=== PATIENT | female | born 1950 | race Hispanic/Latino ===

== ENCOUNTER 2019-03-18 10:32 | Inpatient (IN) | payer MEDICARE ==
[2019-03-18 20:46] LABS: Hematocrit 42.6 % (30.3-42.9); Hemoglobin 13.7 gm/dl (10.1-14.3); Mean Corpuscular HGB Conc 32 % (30-34); Mean Corpuscular Volume 85 fl (79-97); Platelet Count 484 K/mm3 (140-440); Red Blood Count 5.03 M/mm3 (3.65-5.03); Red Cell Distribution Width 16.8 % (13.2-15.2)
[2019-03-18 20:47] LABS: Basophils # (Auto) 0.1 K/mm3 (0.0-0.1); Basophils % (Auto) 0.7 % (0.0-1.8); Eosinophils # (Auto) 0.3 K/mm3 (0.0-0.4); Eosinophils % (Auto) 3.5 % (0.0-4.3); Lymphocytes # (Auto) 2.4 K/mm3 (1.2-5.4); Lymphocytes % (Auto) 28.8 % (13.4-35.0); Monocytes # (Auto) 0.6 K/mm3 (0.0-0.8); Monocytes % (Auto) 7.5 % (0.0-7.3)
[2019-03-18 21:40] LABS: BUN/Creatinine Ratio 40; Blood Urea Nitrogen 24 mg/dL (7-17); Calcium 9.7 mg/dL (8.4-10.2)
[2019-03-18 21:41] LABS: Alanine Aminotransferase 34 units/L (7-56); Albumin 3.8 g/dL (3.9-5); HDL Cholesterol 49 mg/dL (40-59); LDL Cholesterol,Direct 143 mg/dL (50-130)
[2019-03-19 05:20] LABS: Hemolysis Index 9
[2019-03-19] MEDS ORDERED: TERBINAFINE 250 MG PO SCH (11:30)
--- NOTE | 2019-03-19 11:34 | Consultation ---
History of Present Illness - Reason for Consult Consult date: 03/19/19 Medical management - History of Present Illness Lady Gomez is a 68-year-old white female admitted for schizoaffective disorder and a medical consult was requested for management of medical conditions. Patient is awake alert and not in any distress. She is moderately psychotic but responds to questions fairly well. She complains of burning pain in both the feet. She denies any chest pain or shortness of breath. She denies any fever or chills. Denies any nausea, vomiting, abdominal pain dysuria or urinary frequency. She denies any arthritis but states that she has cervical spine stenosis. Past History Past Medical History: No medical history Past Surgical History: No surgical history Social history: no significant social history Family history: no significant family history Medications and Allergies Home Medications Medication Instructions Recorded Confirmed Last Taken Type DOXYCYCLINE Hyclate [Vibramycin] 100 mg PO BID 03/18/19 03/18/19 Unknown History Divalproex ER 500 mg PO Q8HR 03/18/19 03/18/19 Unknown History Heparin 5,000 units SUB-Q Q8HR 03/18/19 03/18/19 Unknown History Lotrimin 1% 1 cream BID 03/18/19 03/19/19 Unknown History Terbinafine (Nf) [LamiSIL] 250 mg PO DAILY 03/18/19 03/18/19 Unknown History Tylenol 650 mg PO Q6HR 03/18/19 03/18/19 Unknown History Active Meds: Active Medications Miscellaneous Medication (Terbinafine (Nf)) 250 mg PO DAILY [facility] Nystatin (Mycostatin) 1 applic TP BID [facility] Review of Systems All systems: negative (13 point review of systems is unremarkable except as stated above in the history of present illness) Exam - Constitutional Vitals: Temp Pulse Resp BP Pulse Ox 97.7 F 91 H 20 94/57 95 03/18/19 22:00 03/18/19 22:00 03/18/19 22:00 03/18/19 22:00 03/18/19 22:00 General appearance: Present: no acute distress, well-nourished - EENT Eyes: Present: PERRL, EOM intact ENT: hearing intact, clear oral mucosa - Neck Neck: Present: supple, normal ROM - Respiratory Respiratory effort: normal Respiratory: bilateral: CTA - Cardiovascular Rhythm: regular Heart Sounds: Present: S1 & S2 - Extremities Extremities: No edema Extremity abnormal: other (Both feet positive for chronically appearing erythematous discoloration with dry skin and severe toenail fungus. There are no open ulcers or discharge) - Abdominal General gastrointestinal: Present: soft, non-tender. Absent: hepatomegaly, splenomegaly Female genitourinary: Present: deferred - Rectal Rectal Exam: deferred - Integumentary Integumentary: Present: rash (On both feet distally) - Musculoskeletal Musculoskeletal: strength equal bilaterally - Psychiatric Psychiatric: appropriate mood/affect - Neurologic Neurologic: no focal deficits Results - Labs CBC & Chem 7: 03/18/19 19:59 03/18/19 19:59 Labs: Abnormal lab results 03/18/19 03/18/19 Range/Units 19:59 19:59 MCH 27 L (28-32) pg RDW 16.8 H (13.2-15.2) % Plt Count 484 H (140-440) K/mm3 [place] % (Auto) 7.5 H (0.0-7.3) % Sodium 135 L (137-145) mmol/L BUN 24 H (7-17) mg/dL Creatinine 0.6 L (0.7-1.2) mg/dL Glucose 144 H (65-100) mg/dL Albumin 3.8 L (3.9-5) g/dL Triglycerides 169 H (2-149) mg/dL Cholesterol 201 H (50-199) mg/dL LDL Cholesterol Direct 143 H (50-130) mg/dL Assessment and Plan - Patient Problems (1) Hyperglycemia Current Visit: Yes Status: Acute Plan to address problem: Patient denies any history of diabetes Check A1c (2) Hyponatremia Current Visit: Yes Status: Acute Plan to address problem: Mild Monitor electrolytes No need for hyponatremia work-up at this time (3) Dyslipidemia Current Visit: Yes Status: Chronic Plan to address problem: Borderline dyslipidemia Low-fat diet (4) Toenail fungus Current Visit: Yes Status: Chronic Plan to address problem: Continue terbinafine Check liver function tests (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
[2019-03-19] MEDS: NYSTATIN CREAM 15 GM TUBE TP SCH ×2 (13:19→21:45)
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
[2019-03-19] MEDS: DIVALPROEX ER 500 MG TAB PO SCH (21:47)
[2019-03-19] MEDS: HEPARIN 5,000 UNIT/1 ML VIAL SUB-Q SCH (21:47)
[2019-03-19] MEDS: DOXYCYCLINE 100 MG CAPSULE PO SCH (21:47)
[2019-03-19] MEDS ORDERED: NON-FORMULARY EACH (Divalproex Er 500 MG) PO SCH (22:00)
[2019-03-19] MEDS ORDERED: HEPARIN 5000 UNIT SUB-Q SCH (22:00)
[2019-03-20] MEDS: HEPARIN 5,000 UNIT/1 ML VIAL SUB-Q SCH ×3 (05:30→21:44)
[2019-03-20] MEDS: DIVALPROEX ER 500 MG TAB PO SCH ×3 (05:32→21:45)
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
[2019-03-20] MEDS: NYSTATIN CREAM 15 GM TUBE TP SCH ×2 (11:52→21:44)
[2019-03-20] MEDS: DOXYCYCLINE 100 MG CAPSULE PO SCH ×2 (11:52→21:43)
[2019-03-20] MEDS: traZODone 50 MG TAB PO SCH (21:45)
[2019-03-21] MEDS: HEPARIN 5,000 UNIT/1 ML VIAL SUB-Q SCH ×3 (05:13→21:15)
[2019-03-21] MEDS: DIVALPROEX ER 500 MG TAB PO SCH ×4 (05:14→21:14)
[2019-03-21] MEDS: DOXYCYCLINE 100 MG CAPSULE PO SCH ×2 (10:02→21:15)
[2019-03-21] MEDS: NYSTATIN CREAM 15 GM TUBE TP SCH ×2 (10:03→21:14)
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
[2019-03-21] MEDS ORDERED: HALOPERIDOL LACTATE 5 MG/1 ML INJ IM PRN (10:40)
[2019-03-21] MEDS ORDERED: LORazepam 2 MG/ML VIAL IM PRN (10:49)
[2019-03-21] MEDS: traZODone 50 MG TAB PO SCH (21:14)
[2019-03-22] MEDS: DIVALPROEX ER 500 MG TAB PO SCH ×3 (05:54→21:13)
[2019-03-22] MEDS: ACETAMINOPHEN 325 MG TAB PO PRN (05:57)
[2019-03-22] MEDS: HEPARIN 5,000 UNIT/1 ML VIAL SUB-Q SCH ×3 (06:07→21:14)
--- NOTE | 2019-03-22 08:38 | Progress Note ---
Subjective Date of service: 03/22/19 Principal diagnosis: schizoaffective disorder, bipolar Subjective Comment: Subjective Comment: Reviewed the patient's medical chart and discussed progress with nursing staff. Per chart, The patient remained hyperverbal throughout the evening. She continues with delusions of being part of a law enforcement operation. She agreed to take her bedtime medications but refused the Heparin injection stating "I don't need it now I am up moving around". During my interview this morning, the patient was in the day room aaox3, . When asked how she was doing she replied, "I am dope up". she denies SI/HI and AVH. when ask about her mood she replied, 'Ihave hangover from the drugs that is poisoning my body". the patient stated "I don't want to take medication because my mother from the wrong medication ". she then started crying. the client then reports that she needs to go home and the witness protection program probably need her. Reason for continued admission into the hospital: delusional / Improve tx, medication compliance REVIEW OF SYSTEMS Constitutional: Negative for weight loss ENT: Negative for stridor Respiratory: Negative for cough or hemoptysis All other systems reviewed and are negative Mental Status Exam Appearance:dress appriopriately Behavior: flat/crying Mood: : sad Affect: congruent with mood Thought Process: disorganized Speech: normal Thought Content Harmfulness : denies Hallucinations:denies Delusions: yes Consciousness: Alert Cognition/Memory: Fair Insight/Judgment: Limited. Assessment: Schizoaffective Disorder behavioral,bipolar Treatment Plan Due to the psychiatric conditions and treatment listed in the Assessment and Plan - the patient requires continued hospitalization. Will continue inpatient treatment to allow for medication adjustment and monitoring. Will continue q15 min safety checks. Will encourage the use of environmental modifications and non-pharmacologic approaches for the management of behavioral and psychological symptoms. Medication adjustment made today: none Will continue current psych medications Monitor for medication side effects. The patient will continue on medications for physical illnesses, and Hospitalist will closely monitor these Continue intensive physical and occupational therapies. Monitor patient's mood, sleep, appetite, and behavior closely. Encourage patient to participate in individual and group therapeutic sessions on the fraser. Will provide a safe and therapeutic environment for patient. ELOS 3 days Objective - Criteria for Continued Treatment Criteria for Continued Treatment: Medications and Allergies Allergies Allergy/AdvReac Type Severity Reaction Status Date / Time No Known Allergies Allergy Verified 03/20/19 05:48 Home Medications Medication Instructions Recorded Confirmed Last Taken Type DOXYCYCLINE Hyclate [Vibramycin] 100 mg PO BID 03/18/19 03/18/19 Unknown History Divalproex ER 500 mg PO Q8HR 03/18/19 03/18/19 Unknown History Heparin 5,000 units SUB-Q Q8HR 03/18/19 03/18/19 Unknown History Lotrimin 1% 1 cream BID 03/18/19 03/19/19 Unknown History Terbinafine (Nf) [LamiSIL] 250 mg PO DAILY 03/18/19 03/18/19 Unknown History Tylenol 650 mg PO Q6HR 03/18/19 03/18/19 Unknown History Active Meds: Active Medications Acetaminophen (Tylenol) 650 mg PO Q6H PRN PRN Reason: Pain, Mild (1-3) Last Admin: 03/22/19 05:57 Dose: 650 mg Documented by: Divalproex Sodium (Depakote Er) 500 mg PO Q8HR [facility] Last Admin: 03/22/19 05:54 Dose: 500 mg Documented by: Doxycycline Hyclate (Vibramycin) 100 mg PO BID [facility] Last Admin: 03/21/19 21:15 Dose: 100 mg Documented by: Haloperidol Lactate (Haldol) 5 mg IM Q6H PRN PRN Reason: Agitation Heparin Sodium (Porcine) (Heparin) 5,000 unit SUB-Q Q8HR [facility] Last Admin: 03/22/19 06:07 Dose: Not Given Documented by: Lorazepam (Ativan) 1 mg IM Q6H PRN PRN Reason: Agitation Miscellaneous Medication (Terbinafine (Nf)) 250 mg PO DAILY [facility] Nystatin (Mycostatin) 1 applic TP BID [facility] Last Admin: 03/21/19 21:14 Dose: 1 applic Documented by: Trazodone HCl (Desyrel) 50 mg PO QHS [facility] Last Admin: 03/21/19 21:14 Dose: 50 mg Documented by: Results - Results Labs/Vitals: Laboratory Last Values WBC 8.2 K/mm3 (4.5-11.0) 03/18/19 19:59 RBC 5.03 M/mm3 (3.65-5.03) 03/18/19 19:59 Hgb 13.7 gm/dl (10.1-14.3) 03/18/19 19:59 Hct 42.6 % (30.3-42.9) 03/18/19 19:59 MCV 85 fl (79-97) 03/18/19 19:59 MCH 27 pg (28-32) L 03/18/19 19:59 MCHC 32 % (30-34) 03/18/19 19:59 RDW 16.8 % (13.2-15.2) H 03/18/19 19:59 Plt Count 484 K/mm3 (140-440) H 03/18/19 19:59 Lymph % (Auto) 28.8 % (13.4-35.0) 03/18/19 19:59 [place] % (Auto) 7.5 % (0.0-7.3) H 03/18/19 19:59 Eos % (Auto) 3.5 % (0.0-4.3) 03/18/19 19:59 Baso % (Auto) 0.7 % (0.0-1.8) 03/18/19 19:59 Lymph # 2.4 K/mm3 (1.2-5.4) 03/18/19 19:59 [place] # 0.6 K/mm3 (0.0-0.8) 03/18/19 19:59 Eos # 0.3 K/mm3 (0.0-0.4) 03/18/19 19:59 Baso # 0.1 K/mm3 (0.0-0.1) 03/18/19 19:59 Seg Neutrophils % 59.5 % (40.0-70.0) 03/18/19 19:59 Seg Neutrophils # 4.8 K/mm3 (1.8-7.7) 03/18/19 19:59 Sodium 135 mmol/L (137-145) L 03/18/19 19:59 Potassium 4.4 mmol/L (3.6-5.0) 03/18/19 19:59 Chloride 98.4 mmol/L (98-107) 03/18/19 19:59 Carbon Dioxide 23 mmol/L (22-30) 03/18/19 19:59 Anion Gap 18 mmol/L 03/18/19 19:59 BUN 24 mg/dL (7-17) H 03/18/19 19:59 Creatinine 0.6 mg/dL (0.7-1.2) L 03/18/19 19:59 Estimated GFR > 60 ml/min 03/18/19 19:59 BUN/Creatinine Ratio 40 % 03/18/19 19:59 Glucose 144 mg/dL (65-100) H 03/18/19 19:59 POC Glucose 95 (70-105) 03/19/19 12:10 Hemoglobin A1c 5.5 % (4-6) 03/18/19 19:59 Calcium 9.7 mg/dL (8.4-10.2) 03/18/19 19:59 Total Bilirubin 0.20 mg/dL (0.1-1.2) 03/18/19 19:59 AST 24 units/L (5-40) 03/18/19 19:59 ALT 34 units/L (7-56) 03/18/19 19:59 Alkaline Phosphatase 72 units/L (35-129) 03/18/19 19:59 Total Protein 7.2 g/dL (6.3-8.2) 03/18/19 19:59 Albumin 3.8 g/dL (3.9-5) L 03/18/19 19:59 Albumin/Globulin Ratio 1.1 % 03/18/19 19:59 Triglycerides 169 mg/dL (2-149) H 03/18/19 19:59 Cholesterol 201 mg/dL (50-199) H 03/18/19 19:59 LDL Cholesterol Direct 143 mg/dL (50-130) H 03/18/19 19:59 HDL Cholesterol 49 mg/dL (40-59) 03/18/19 19:59 Cholesterol/HDL Ratio 4.10 % 03/18/19 19:59 TSH 2.510 mlU/mL (0.270-4.200) 03/18/19 19:59 Last Vital Signs Temp 97.6 F 03/21/19 21:52 Pulse 84 03/21/19 21:52 Resp 17 03/21/19 21:52 BP 107/50 03/21/19 21:52 Pulse Ox 99 03/21/19 21:52
[2019-03-22] MEDS: NYSTATIN CREAM 15 GM TUBE TP SCH ×2 (09:25→21:13)
[2019-03-22] MEDS: DOXYCYCLINE 100 MG CAPSULE PO SCH ×2 (09:25→21:13)
[2019-03-22] MEDS: traZODone 50 MG TAB PO SCH (21:13)
[2019-03-23] MEDS: DIVALPROEX ER 500 MG TAB PO SCH ×3 (06:16→21:10)
[2019-03-23] MEDS: HEPARIN 5,000 UNIT/1 ML VIAL SUB-Q SCH ×3 (06:16→21:10)
--- NOTE | 2019-03-23 08:18 | Progress Note ---
Subjective Date of service: 03/23/19 Principal diagnosis: schizoaffective disorder, bipolar Subjective Comment: Subjective Comment: Reviewed the patient's medical chart and discussed progress with nursing staff. Per chart, patient slept most of night. Compliant with meds. During my interview this morning, the patient was in her room aaox2,she report that she slept well, but has a headache, report mood as great and staed," I am homesick. She denies stated, " never, that a sin , disrespect of god creation.". She denies HI and AVH.The patient is compliant with medications but, her though process is tangential and loosely associated. Reason for continued admission into the hospital: delusional / Improve tx, medication compliance REVIEW OF SYSTEMS Constitutional: Negative for weight loss ENT: Negative for stridor Respiratory: Negative for cough or hemoptysis All other systems reviewed and are negative Mental Status Exam Appearance:dress appriopriately Behavior: calm cooperative Mood: : euphoric Affect: congruent with mood Thought Process: tangential Speech: normal Thought Content Harmfulness : denies Hallucinations:denies Delusions: yes Consciousness: Alert Cognition/Memory: Fair Insight/Judgment: Limited. Assessment: Schizoaffective Disorder behavioral,bipolar Treatment Plan Due to the psychiatric conditions and treatment listed in the Assessment and Plan - the patient requires continued hospitalization. Will continue inpatient treatment to allow for medication adjustment and monitoring. Will continue q15 min safety checks. Will encourage the use of environmental modifications and non-pharmacologic approaches for the management of behavioral and psychological symptoms. Medication adjustment made today: none Will continue current psych medications Monitor for medication side effects. The patient will continue on medications for physical illnesses, and Hospitalist will closely monitor these Continue intensive physical and occupational therapies. Monitor patient's mood, sleep, appetite, and behavior closely. Encourage patient to participate in individual and group therapeutic sessions on the fraser. Will provide a safe and therapeutic environment for patient. ELOS 3 days Objective Medications and Allergies Allergies Allergy/AdvReac Type Severity Reaction Status Date / Time No Known Allergies Allergy Verified 03/20/19 05:48 Home Medications Medication Instructions Recorded Confirmed Last Taken Type DOXYCYCLINE Hyclate [Vibramycin] 100 mg PO BID 03/18/19 03/18/19 Unknown History Divalproex ER 500 mg PO Q8HR 03/18/19 03/18/19 Unknown History Heparin 5,000 units SUB-Q Q8HR 03/18/19 03/18/19 Unknown History Lotrimin 1% 1 cream BID 03/18/19 03/19/19 Unknown History Terbinafine (Nf) [LamiSIL] 250 mg PO DAILY 03/18/19 03/18/19 Unknown History Tylenol 650 mg PO Q6HR 03/18/19 03/18/19 Unknown History Active Meds: Active Medications Acetaminophen (Tylenol) 650 mg PO Q6H PRN PRN Reason: Pain, Mild (1-3) Last Admin: 03/22/19 05:57 Dose: 650 mg Documented by: Divalproex Sodium (Depakote Er) 500 mg PO Q8HR [facility] Last Admin: 03/23/19 06:16 Dose: 500 mg Documented by: Doxycycline Hyclate (Vibramycin) 100 mg PO BID [facility] Last Admin: 03/22/19 21:13 Dose: 100 mg Documented by: Haloperidol Lactate (Haldol) 5 mg IM Q6H PRN PRN Reason: Agitation Heparin Sodium (Porcine) (Heparin) 5,000 unit SUB-Q Q8HR [facility] Last Admin: 03/23/19 06:16 Dose: Not Given Documented by: Lorazepam (Ativan) 1 mg IM Q6H PRN PRN Reason: Agitation Miscellaneous Medication (Terbinafine (Nf)) 250 mg PO DAILY [facility] Nystatin (Mycostatin) 1 applic TP BID [facility] Last Admin: 03/22/19 21:13 Dose: 1 applic Documented by: Trazodone HCl (Desyrel) 50 mg PO QHS [facility] Last Admin: 03/22/19 21:13 Dose: 50 mg Documented by: Results - Results Labs/Vitals: Laboratory Last Values WBC 8.2 K/mm3 (4.5-11.0) 03/18/19 19:59 RBC 5.03 M/mm3 (3.65-5.03) 03/18/19 19:59 Hgb 13.7 gm/dl (10.1-14.3) 03/18/19 19:59 Hct 42.6 % (30.3-42.9) 03/18/19 19:59 MCV 85 fl (79-97) 03/18/19 19:59 MCH 27 pg (28-32) L 03/18/19 19:59 MCHC 32 % (30-34) 03/18/19 19:59 RDW 16.8 % (13.2-15.2) H 03/18/19 19:59 Plt Count 484 K/mm3 (140-440) H 03/18/19 19:59 Lymph % (Auto) 28.8 % (13.4-35.0) 03/18/19 19:59 [place] % (Auto) 7.5 % (0.0-7.3) H 03/18/19 19:59 Eos % (Auto) 3.5 % (0.0-4.3) 03/18/19 19:59 Baso % (Auto) 0.7 % (0.0-1.8) 03/18/19 19:59 Lymph # 2.4 K/mm3 (1.2-5.4) 03/18/19 19:59 [place] # 0.6 K/mm3 (0.0-0.8) 03/18/19 19:59 Eos # 0.3 K/mm3 (0.0-0.4) 03/18/19 19:59 Baso # 0.1 K/mm3 (0.0-0.1) 03/18/19 19:59 Seg Neutrophils % 59.5 % (40.0-70.0) 03/18/19 19:59 Seg Neutrophils # 4.8 K/mm3 (1.8-7.7) 03/18/19 19:59 Sodium 135 mmol/L (137-145) L 03/18/19 19:59 Potassium 4.4 mmol/L (3.6-5.0) 03/18/19 19:59 Chloride 98.4 mmol/L (98-107) 03/18/19 19:59 Carbon Dioxide 23 mmol/L (22-30) 03/18/19 19:59 Anion Gap 18 mmol/L 03/18/19 19:59 BUN 24 mg/dL (7-17) H 03/18/19 19:59 Creatinine 0.6 mg/dL (0.7-1.2) L 03/18/19 19:59 Estimated GFR > 60 ml/min 03/18/19 19:59 BUN/Creatinine Ratio 40 % 03/18/19 19:59 Glucose 144 mg/dL (65-100) H 03/18/19 19:59 POC Glucose 95 (70-105) 03/19/19 12:10 Hemoglobin A1c 5.5 % (4-6) 03/18/19 19:59 Calcium 9.7 mg/dL (8.4-10.2) 03/18/19 19:59 Total Bilirubin 0.20 mg/dL (0.1-1.2) 03/18/19 19:59 AST 24 units/L (5-40) 03/18/19 19:59 ALT 34 units/L (7-56) 03/18/19 19:59 Alkaline Phosphatase 72 units/L (35-129) 03/18/19 19:59 Total Protein 7.2 g/dL (6.3-8.2) 03/18/19 19:59 Albumin 3.8 g/dL (3.9-5) L 03/18/19 19:59 Albumin/Globulin Ratio 1.1 % 03/18/19 19:59 Triglycerides 169 mg/dL (2-149) H 03/18/19 19:59 Cholesterol 201 mg/dL (50-199) H 03/18/19 19:59 LDL Cholesterol Direct 143 mg/dL (50-130) H 03/18/19 19:59 HDL Cholesterol 49 mg/dL (40-59) 03/18/19 19:59 Cholesterol/HDL Ratio 4.10 % 03/18/19 19:59 TSH 2.510 mlU/mL (0.270-4.200) 03/18/19 19:59 Last Vital Signs Temp 97.4 F L 03/22/19 20:41 Pulse 83 03/22/19 20:41 Resp 18 03/22/19 20:41 BP 120/57 03/22/19 20:41 Pulse Ox 97 03/22/19 20:41
[2019-03-23] MEDS: DOXYCYCLINE 100 MG CAPSULE PO SCH ×2 (10:14→21:10)
[2019-03-23] MEDS: NYSTATIN CREAM 15 GM TUBE TP SCH ×2 (10:14→21:09)
[2019-03-23] MEDS: traZODone 50 MG TAB PO SCH (21:10)
[2019-03-24] MEDS: DIVALPROEX ER 500 MG TAB PO SCH ×3 (05:08→21:40)
[2019-03-24] MEDS: HEPARIN 5,000 UNIT/1 ML VIAL SUB-Q SCH ×3 (05:12→22:35)
--- NOTE | 2019-03-24 08:25 | Progress Note ---
Subjective Date of service: 03/24/19 Principal diagnosis: schizoaffective disorder, bipolar Subjective Comment: Subjective Comment: Reviewed the patient's medical chart and discussed progress with nursing staff. Per chart,t is alert and oriented x3, calm and cooperative, interacts well with peers, denies SI/HI, denies A/V/H, good appetite, independent with ADLS, pt refused heparin injection, but compliant with her other medication, no behavioral issues, pt slept throughout THE NIGHT. During my interview this morning, the patient was in her room [id number],she report that she slept well, she reports her mood as martinez, she denies SI/HI and AVH. Reason for continued admission into the hospital: delusional / Improve tx, medication compliance REVIEW OF SYSTEMS Constitutional: Negative for weight loss ENT: Negative for stridor Respiratory: Negative for cough or hemoptysis All other systems reviewed and are negative Mental Status Exam Appearance:dress appriopriately Behavior: calm cooperative Mood: : "sleepy" Affect: congruent with mood Thought Process: circumstantial Speech: normal Thought Content Harmfulness : denies Hallucinations:denies Delusions: yes Consciousness: Alert Cognition/Memory: Fair Insight/Judgment: Limited. Assessment: Schizoaffective Disorder behavioral,bipolar Treatment Plan Due to the psychiatric conditions and treatment listed in the Assessment and Plan - the patient requires continued hospitalization. Will continue inpatient treatment to allow for medication adjustment and monitoring. Will continue q15 min safety checks. Will encourage the use of environmental modifications and non-pharmacologic approaches for the management of behavioral and psychological symptoms. Medication adjustment made today: none Will continue current psych medications Monitor for medication side effects. The patient will continue on medications for physical illnesses, and Hospitalist will closely monitor these Continue intensive physical and occupational therapies. Monitor patient's mood, sleep, appetite, and behavior closely. Encourage patient to participate in individual and group therapeutic sessions on the fraser. Will provide a safe and therapeutic environment for patient. ELOS 1 days Objective Medications and Allergies Allergies Allergy/AdvReac Type Severity Reaction Status Date / Time No Known Allergies Allergy Verified 03/20/19 05:48 Home Medications Medication Instructions Recorded Confirmed Last Taken Type DOXYCYCLINE Hyclate [Vibramycin] 100 mg PO BID 03/18/19 03/18/19 Unknown History Divalproex ER 500 mg PO Q8HR 03/18/19 03/18/19 Unknown History Heparin 5,000 units SUB-Q Q8HR 03/18/19 03/18/19 Unknown History Lotrimin 1% 1 cream BID 03/18/19 03/19/19 Unknown History Terbinafine (Nf) [LamiSIL] 250 mg PO DAILY 03/18/19 03/18/19 Unknown History Tylenol 650 mg PO Q6HR 03/18/19 03/18/19 Unknown History Active Meds: Active Medications Acetaminophen (Tylenol) 650 mg PO Q6H PRN PRN Reason: Pain, Mild (1-3) Last Admin: 03/22/19 05:57 Dose: 650 mg Documented by: Divalproex Sodium (Depakote Er) 500 mg PO Q8HR [facility] Last Admin: 03/24/19 05:08 Dose: 500 mg Documented by: Doxycycline Hyclate (Vibramycin) 100 mg PO BID [facility] Last Admin: 03/23/19 21:10 Dose: 100 mg Documented by: Haloperidol Lactate (Haldol) 5 mg IM Q6H PRN PRN Reason: Agitation Heparin Sodium (Porcine) (Heparin) 5,000 unit SUB-Q Q8HR [facility] Last Admin: 03/24/19 05:12 Dose: Not Given Documented by: Lorazepam (Ativan) 1 mg IM Q6H PRN PRN Reason: Agitation Miscellaneous Medication (Terbinafine (Nf)) 250 mg PO DAILY [facility] Nystatin (Mycostatin) 1 applic TP BID [facility] Last Admin: 03/23/19 21:09 Dose: 1 applic Documented by: Trazodone HCl (Desyrel) 50 mg PO QHS [facility] Last Admin: 03/23/19 21:10 Dose: 50 mg Documented by: Results - Results Labs/Vitals: Laboratory Last Values WBC 8.2 K/mm3 (4.5-11.0) 03/18/19 19:59 RBC 5.03 M/mm3 (3.65-5.03) 03/18/19 19:59 Hgb 13.7 gm/dl (10.1-14.3) 03/18/19 19:59 Hct 42.6 % (30.3-42.9) 03/18/19 19:59 MCV 85 fl (79-97) 03/18/19 19:59 MCH 27 pg (28-32) L 03/18/19 19:59 MCHC 32 % (30-34) 03/18/19 19:59 RDW 16.8 % (13.2-15.2) H 03/18/19 19:59 Plt Count 484 K/mm3 (140-440) H 03/18/19 19:59 Lymph % (Auto) 28.8 % (13.4-35.0) 03/18/19 19:59 [place] % (Auto) 7.5 % (0.0-7.3) H 03/18/19 19:59 Eos % (Auto) 3.5 % (0.0-4.3) 03/18/19 19:59 Baso % (Auto) 0.7 % (0.0-1.8) 03/18/19 19:59 Lymph # 2.4 K/mm3 (1.2-5.4) 03/18/19 19:59 [place] # 0.6 K/mm3 (0.0-0.8) 03/18/19 19:59 Eos # 0.3 K/mm3 (0.0-0.4) 03/18/19 19:59 Baso # 0.1 K/mm3 (0.0-0.1) 03/18/19 19:59 Seg Neutrophils % 59.5 % (40.0-70.0) 03/18/19 19:59 Seg Neutrophils # 4.8 K/mm3 (1.8-7.7) 03/18/19 19:59 Sodium 135 mmol/L (137-145) L 03/18/19 19:59 Potassium 4.4 mmol/L (3.6-5.0) 03/18/19 19:59 Chloride 98.4 mmol/L (98-107) 03/18/19 19:59 Carbon Dioxide 23 mmol/L (22-30) 03/18/19 19:59 Anion Gap 18 mmol/L 03/18/19 19:59 BUN 24 mg/dL (7-17) H 03/18/19 19:59 Creatinine 0.6 mg/dL (0.7-1.2) L 03/18/19 19:59 Estimated GFR > 60 ml/min 03/18/19 19:59 BUN/Creatinine Ratio 40 % 03/18/19 19:59 Glucose 144 mg/dL (65-100) H 03/18/19 19:59 POC Glucose 95 (70-105) 03/19/19 12:10 Hemoglobin A1c 5.5 % (4-6) 03/18/19 19:59 Calcium 9.7 mg/dL (8.4-10.2) 03/18/19 19:59 Total Bilirubin 0.20 mg/dL (0.1-1.2) 03/18/19 19:59 AST 24 units/L (5-40) 03/18/19 19:59 ALT 34 units/L (7-56) 03/18/19 19:59 Alkaline Phosphatase 72 units/L (35-129) 03/18/19 19:59 Total Protein 7.2 g/dL (6.3-8.2) 03/18/19 19:59 Albumin 3.8 g/dL (3.9-5) L 03/18/19 19:59 Albumin/Globulin Ratio 1.1 % 03/18/19 19:59 Triglycerides 169 mg/dL (2-149) H 03/18/19 19:59 Cholesterol 201 mg/dL (50-199) H 03/18/19 19:59 LDL Cholesterol Direct 143 mg/dL (50-130) H 03/18/19 19:59 HDL Cholesterol 49 mg/dL (40-59) 03/18/19 19:59 Cholesterol/HDL Ratio 4.10 % 03/18/19 19:59 TSH 2.510 mlU/mL (0.270-4.200) 03/18/19 19:59 Last Vital Signs Temp 97.7 F 03/23/19 22:00 Pulse 89 03/23/19 22:00 Resp 18 03/23/19 22:00 BP 108/60 03/23/19 22:00 Pulse Ox 97 03/23/19 22:00
[2019-03-24] MEDS: NYSTATIN CREAM 15 GM TUBE TP SCH ×2 (09:17→21:42)
[2019-03-24] MEDS: DOXYCYCLINE 100 MG CAPSULE PO SCH ×2 (09:17→21:40)
[2019-03-24] MEDS: ACETAMINOPHEN 325 MG TAB PO PRN (09:44)
[2019-03-24 20:01] VITALS: BP 105/47
[2019-03-24] MEDS: traZODone 50 MG TAB PO SCH (21:41)
[2019-03-25] MEDS: DIVALPROEX ER 500 MG TAB PO SCH (06:43)
[2019-03-25] MEDS: HEPARIN 5,000 UNIT/1 ML VIAL SUB-Q SCH (06:43)
--- NOTE | 2019-03-25 09:33 | Discharge Summary ---
Providers - Providers Date of Admission: 03/18/19 16:37 Date of discharge: 03/25/19 Attending physician: ADRYAN HARRISON MD 03/18/19 16:37 Consult to Physician [CONS] Routine Comment: Consulting Provider: CHIOMA MARIO Physician Instructions: Reason For Exam: medical management of rj patient 03/20/19 09:35 Physical Therapy Evaluation and Treat [CONS] Routine Comment: Reason For Exam: walker Mode of Transport?: Walker Weight bearing status?: Full wt bearing Assistive devices?: Yes If so list: Walker Primary care physician: GAMBLING MONITOR Hospitalization Admitting Diagnosis: F25.0 - SCHIZOAFFECTIVE DISORDER, BIPOLAR TYPE Condition: Stable Hospital course: The patient was provided inpatient psychiatric treatment with a safe and supportive environment, group/individual therapy, psychiatric medication, including medication adjustment, monitoring for adverse effects, medical evaluat ion, medical treatment, social service assessment, social support meeting, placement assessment and psycho-education. The patient's mood, cognition, behavior, motivation, compliance to treatment and appreciation on family/social support are improved and stabilized. At the time of discharge the patient had no suicidal, homicidal ideations or endangering behavior, and no debilitating adverse effects. The patient agreed on the treatment plan, understand the risk, benefit, alternative treatment, potential consequence of no treatment and gave informed consent Disposition: DC-01 TO HOME OR SELFCARE Time spent for discharge: 38 Allergies/Adverse Reactions: Allergies No Known Allergies Allergy (Verified 03/20/19 05:48) Vital Signs: Last Vital Signs Temp 98.0 F 03/24/19 19:59 Pulse 61 03/24/19 19:59 Resp 18 03/24/19 19:59 BP 105/47 03/24/19 19:59 Pulse Ox 99 03/24/19 19:59 Last Lab: Laboratory Last Values WBC 8.2 K/mm3 (4.5-11.0) 03/18/19 19:59 RBC 5.03 M/mm3 (3.65-5.03) 03/18/19 19:59 Hgb 13.7 gm/dl (10.1-14.3) 03/18/19 19:59 Hct 42.6 % (30.3-42.9) 03/18/19 19:59 MCV 85 fl (79-97) 03/18/19 19:59 MCH 27 pg (28-32) L 03/18/19 19:59 MCHC 32 % (30-34) 03/18/19 19:59 RDW 16.8 % (13.2-15.2) H 03/18/19 19:59 Plt Count 484 K/mm3 (140-440) H 03/18/19 19:59 Lymph % (Auto) 28.8 % (13.4-35.0) 03/18/19 19:59 [place] % (Auto) 7.5 % (0.0-7.3) H 03/18/19 19:59 Eos % (Auto) 3.5 % (0.0-4.3) 03/18/19 19:59 Baso % (Auto) 0.7 % (0.0-1.8) 03/18/19 19:59 Lymph # 2.4 K/mm3 (1.2-5.4) 03/18/19 19:59 [place] # 0.6 K/mm3 (0.0-0.8) 03/18/19 19:59 Eos # 0.3 K/mm3 (0.0-0.4) 03/18/19 19:59 Baso # 0.1 K/mm3 (0.0-0.1) 03/18/19 19:59 Seg Neutrophils % 59.5 % (40.0-70.0) 03/18/19 19:59 Seg Neutrophils # 4.8 K/mm3 (1.8-7.7) 03/18/19 19:59 Sodium 135 mmol/L (137-145) L 03/18/19 19:59 Potassium 4.4 mmol/L (3.6-5.0) 03/18/19 19:59 Chloride 98.4 mmol/L (98-107) 03/18/19 19:59 Carbon Dioxide 23 mmol/L (22-30) 03/18/19 19:59 Anion Gap 18 mmol/L 03/18/19 19:59 BUN 24 mg/dL (7-17) H 03/18/19 19:59 Creatinine 0.6 mg/dL (0.7-1.2) L 03/18/19 19:59 Estimated GFR > 60 ml/min 03/18/19 19:59 BUN/Creatinine Ratio 40 % 03/18/19 19:59 Glucose 144 mg/dL (65-100) H 03/18/19 19:59 POC Glucose 95 (70-105) 03/19/19 12:10 Hemoglobin A1c 5.5 % (4-6) 03/18/19 19:59 Calcium 9.7 mg/dL (8.4-10.2) 03/18/19 19:59 Total Bilirubin 0.20 mg/dL (0.1-1.2) 03/18/19 19:59 AST 24 units/L (5-40) 03/18/19 19:59 ALT 34 units/L (7-56) 03/18/19 19:59 Alkaline Phosphatase 72 units/L (35-129) 03/18/19 19:59 Total Protein 7.2 g/dL (6.3-8.2) 03/18/19 19:59 Albumin 3.8 g/dL (3.9-5) L 03/18/19 19:59 Albumin/Globulin Ratio 1.1 % 03/18/19 19:59 Triglycerides 169 mg/dL (2-149) H 03/18/19 19:59 Cholesterol 201 mg/dL (50-199) H 03/18/19 19:59 LDL Cholesterol Direct 143 mg/dL (50-130) H 03/18/19 19:59 HDL Cholesterol 49 mg/dL (40-59) 03/18/19 19:59 Cholesterol/HDL Ratio 4.10 % 03/18/19 19:59 TSH 2.510 mlU/mL (0.270-4.200) 03/18/19 19:59 Core Measure Documentation - Palliative Care Palliative Care/ Comfort Measures: Not Applicable - Core Measures Any of the following diagnoses?: none Exam - Constitutional Vitals: Temp Pulse Resp BP Pulse Ox 98.0 F 61 18 105/47 99 03/24/19 19:59 03/24/19 19:59 03/24/19 19:59 03/24/19 19:59 03/24/19 19:59 General appearance: Present: no acute distress, well-nourished - EENT Eyes: Present: PERRL, EOM intact ENT: hearing intact, clear oral mucosa - Neck Neck: Present: normal ROM - Respiratory Respiratory effort: normal Plan Activity: advance as tolerated Weight Bearing Status: Non-Weight Bearing Care Plan Goals: Maintain good and stable mental health Plan of Treatment: The patient should be compliant with medications, do not engage in drug use or alcohol The patient understands that if suicidal or homicidal ideations or any endangered thoughts arise, the patient should immediately seed emergency assistance including but not limited to crisis hotline and emergency room. Follow up with psychiatrist and PCP within 7-14 days of discharge Health Concerns: Hypoglycemia, Hyponatremia, Dyslipidemia Assessment: Sichizoaffective Disorder, Bipolar Type Follow up with: PRIMARY CARE, [Primary Care Provider] - 7 Days Prescriptions: traZODone [Desyrel] 50 mg PO QHS #30 tablet
[2019-03-25] MEDS: DOXYCYCLINE 100 MG CAPSULE PO SCH (09:56)
== END 2019-03-25 13:00 | disposition home or self-care (01) | DRG 885 ==
LOC: 3A 10:32 → UNDOADMIN 10:32 → 5A 16:37 → UNDOADMIN 19:18 → 5A 19:18
PROVIDERS: ADMIT Psychiatry & Neurology Psychiatry; ATTEND Psychiatry & Neurology Psychiatry
DX: F25.0 Schizoaffective disorder, bipolar type (principal); E87.1 Hypo-osmolality and hyponatremia; E78.5 Hyperlipidemia, unspecified; B36.8 Other specified superficial mycoses; E16.2 Hypoglycemia, unspecified; Z79.899 Other long term (current) drug therapy
CPT/HCPCS: 36415; 80053; 80061; 82962; 83036; 84443; 85025; G0378; J1644